=== PATIENT | female | born 1955 | race Caucasian/White ===

== ENCOUNTER → 2016-07-12 | Outpatient (CLI) | payer OTHER | LOC: FIMAGING 07:37 | DX: Z12.31 Encounter for screening mammogram for malignant neoplasm of breast (principal) | CPT/HCPCS: G0202 ==

== ENCOUNTER → 2017-07-18 | Outpatient (CLI) | payer OTHER | LOC: FIMAGING 09:54 | PROVIDERS: ATTEND Family Medicine | DX: Z12.31 Encounter for screening mammogram for malignant neoplasm of breast (principal) ==

== ENCOUNTER → 2018-07-19 | Outpatient (CLI) | payer OTHER | LOC: FIMAGING 07:39 | PROVIDERS: ATTEND Family Medicine | DX: Z12.31 Encounter for screening mammogram for malignant neoplasm of breast (principal) ==